=== PATIENT | female | born 1970 | race Caucasian/White ===

== ENCOUNTER 2018-10-04 08:50 | Inpatient (IN) ==
--- NOTE | 2018-10-04 09:19 | Emergency Department Note ---
Disposition Clinical Impression: Suicidal ideation Drug overdose Qualifiers: Encounter type: initial encounter Injury intent: intentional self-harm Qualified Code(s): T50.902A - Poisoning by unspecified drugs, medicaments and biological substances, intentional self-harm, initial encounter Disposition: Admitted As Inpatient Condition: Good General Adult HPI - General Chief complaint: ED Psychiatric Symptoms Stated complaint: psych eval, medication overdose Time Seen by Provider: 10/04/18 08:54 Source: patient, EMS Limitations: no limitations Nursing Notes Reviewed: Yes Vital Signs Reviewed: Yes - History of Present Illness HPI Narrative: Chief complaint is stressed out: History this is a 48-year-old female she was a transfer from an outside emergency department. She says she has been stressed with work also has been taking steroids for bronchitis and she said that makes her agitated. She has some financial and family stresses at home. She says she does feel safe there. She tells me her brother overdosed and a couple months ago. She states that she took on some Celexa, Naprosyn, and prednisone today to harm herself. Should that was 11:00 last night spread to the ER they did charcoal and her got labs and then sent over here for psychiatric evaluation. She says she does not think she suicidal anymore. She would like to talk with somebody. Not homicidal. She is under 72 hour hold. Past medical history reviewed, nurse's notes reviewed, allergies reviewed, med list reviewed. Pain Scale: 5 - Related Data Home Medications Medication Instructions Recorded Confirmed Buspirone HCl [Buspar] 10 mg PO DAILY 08/22/18 08/22/18 Estrogen, Con/M-Proges Acet 1 each PO DAILY 08/22/18 08/22/18 [Prempro 0.625-2.5 MG TABLET] Triamcinolone Acet 0.1% OINT 1 appl TP BID 08/22/18 08/22/18 [Kenalog] Previous Rx's Medication Instructions Recorded Naproxen [Naprosyn] 500 mg PO BID #20 tablet 09/26/18 Allergies Allergy/AdvReac Type Severity Reaction Status Date / Time No Known Allergies Allergy Verified 10/04/18 09:02 Review of Systems: Positive for "stress". Denies depression. Denies hearing voices, seeing things or feeling suicidal or homicidal at this time. Past Medical History - Past Medical History Medical history: Reports: migraine, other Surgical history: Reports: other Psychiatric history: Reports: anxiety, depression [employer] history: Reports: no [employer] history - Social History Smoking Status: Current every day smoker Smokeless Tobacco Status: No (0.5ppd) Alcohol use: Reports: none Drug use: Reports: none Physical Exam Temperature is 98.9, pulse is 78 and regular, respirations 16 nonlabored, BP 108/61, pulse ox 98%, weighs 56.6 kg. She is alert cooperative and nontoxic in appearance. HEENT: Normocephalic, PERRL, EOMI, no scleral icterus, no lymph nodes. Moist mucous membranes, neck is supple. Cardiovascular is regular rate and rhythm without rubs or JVD. Lungs are clear to auscultation bilaterally with good aeration. Abdomen is soft nonsurgical good bowel sounds no masses Extremities are present 4 good distal pulses Refill is brisk. Dermatologic skin is warm and dry no signs of acute trauma rash or petechiae. Neurologic up and ambulatory, moves all extremities no focal deficits. Alert person place and time, GCS is 15. Psychologic, makes good eye contact, does not seem to be depressed at this time. - General Limitations: no limitations General appearance: alert, in no apparent distress Course Vital Signs Temperature 98.9 F 10/04/18 08:56 Pulse Rate 78 10/04/18 08:56 Respiratory Rate 16 10/04/18 08:56 Blood Pressure 108/61 10/04/18 08:56 O2 Sat by Pulse Oximetry 98 10/04/18 08:56 Temperature 98.9 F 10/04/18 08:56 Pulse Rate 78 10/04/18 08:56 Respiratory Rate 16 10/04/18 08:56 Blood Pressure 108/61 10/04/18 08:56 O2 Sat by Pulse Oximetry 98 10/04/18 08:56 Oxygen Delivery Oxygen Delivery Room Air Medical Decision Making - [facility] Narrative Medical decision making narrative: 10:00: Review of her labs from the outside hospital shows no acute abnormalities. She says she would like to talk with someone. She is medically clear at this point under [address] Spoke with [facility] for evaluation and ordered for breakfast. 1021 hrs.: [facility] is evaluating the patient. Poison control called to follow-up on her labs discussed that with her no further recommendations. 1030 hrs.: [facility] is going to admit the patient to their facility. Patient's in agreement with plan. [address]
[2018-10-04] MEDS ORDERED: Haloperidol Lactate 5 MG/ML VIAL IM PRN (11:00)
[2018-10-04] MEDS ORDERED: MOM Conc 10 ML UD.LIQ PO PRN (11:00)
[2018-10-04] MEDS ORDERED: *HR* LORazepam 1 MG TABLET PO PRN (11:00)
[2018-10-04] MEDS ORDERED: traZODone 50 MG TABLET PO PRN (11:00)
[2018-10-04] MEDS ORDERED: hydrOXYzine pamoate 25 MG CAPSULE PO PRN (11:00)
[2018-10-04] MEDS ORDERED: Mag Hydrox/Al Hydrox/Simeth 30 ML UDC PO PRN (11:00)
[2018-10-04] MEDS ORDERED: Ibuprofen 400 MG TABLET PO PRN (11:00)
[2018-10-04] MEDS ORDERED: *HR* LORazepam 2 MG/ML VIAL IM PRN (11:00)
[2018-10-04] MEDS: Sulfamethoxazole/Trimeth DS 1 EACH TABLET PO SCH (20:41)
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
[2018-10-05] MEDS: Sulfamethoxazole/Trimeth DS 1 EACH TABLET PO SCH ×2 (09:05→21:15)
[2018-10-05] MEDS: Doxycycline 100 MG CAPSULE PO SCH ×2 (09:05→21:15)
[2018-10-05] MEDS: predniSONE 10 MG TABLET PO SCH (09:36)
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
[2018-10-06] MEDS: Doxycycline 100 MG CAPSULE PO SCH (08:37)
[2018-10-06] MEDS: predniSONE 10 MG TABLET PO SCH (08:38)
[2018-10-06] MEDS: Sulfamethoxazole/Trimeth DS 1 EACH TABLET PO SCH (08:38)
[2018-10-06 09:41] VITALS: BP 121/75
== END 2018-10-06 14:20 | disposition home or self-care (01) | DRG 885 ==
LOC: EMEROOARM 08:50 → 1ANU 10:34
PROVIDERS: ADMIT Psychiatry & Neurology Psychiatry; ATTEND Psychiatry & Neurology Psychiatry